=== PATIENT | female | born 1970 | race Caucasian/White ===

== ENCOUNTER 2018-02-15 14:15 | Emergency (ER) | payer OTHER, SELFPAY ==
--- NOTE | 2018-02-15 15:30 | EDPHYS ---
Physician Documentation [facility] Name: Laura Thrasher Age: 47 yrs Sex: Female : 1970 Arrival Date: 02/15/2018 Time: 14:20 Bed 30 Private MD: ED Physician Isacc Ng HPI: 02/15 15:25 This 47 yrs old Female presents to ER via Ambulatory with complaints of cp Itching. 15:25 The patient's rash thought to be caused by an unknown cause. The rash is located on the cp left hand, left arm and right leg. The rash can be described as itching. Onset: The symptoms/episode began/occurred 1.5 week(s) ago. Associated signs and symptoms: Pertinent positives: itching, Pertinent negatives: burning sensation, difficulty breathing, fever, wheezing. Severity of symptoms: in the emergency department the symptoms are unchanged. The patient has been recently seen by a physician: in [place] ED, with similar presenting complaints, prescribed oral steroids and instructed to take OTC Benadryl . 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 - Social history:: Smoking status: Patient uses tobacco products, smokes one-half pack cigarettes per day. - Ebola Screening: : No symptoms or risks identified at this time. ROS: 15:27 Constitutional: Negative for body aches, chills, fever, poor PO intake. cp 15:27 Respiratory: Negative for cough, shortness of breath, wheezing. 15:27 Abdomen/GI: Negative for abdominal pain, nausea, vomiting, and diarrhea. 15:27 Skin: Positive for rash, pruritis, Negative for cellulitis. 15:27 All other systems are negative. Exam: 15:28 Constitutional: The patient appears in no acute distress, alert, awake, non-toxic, well cp developed, well nourished. 15:28 Head/Face: Normocephalic, atraumatic. cp 15:28 Eyes: Periorbital structures: appear normal, Conjunctiva: normal, no exudate, no injection, Sclera: no appreciated abnormality, Lids and lashes: appear normal, bilaterally. 15:28 ENT: External ear(s): are unremarkable, Nose: is normal, Mouth: Lips: moist, Oral mucosa: moist, Posterior pharynx: Airway: no evidence of obstruction, patent. 15:28 Chest/axilla: Inspection: normal. 15:28 Cardiovascular: Rate: normal, Rhythm: regular. 15:28 Respiratory: the patient does not display signs of respiratory distress, Respirations: normal, no use of accessory muscles, no retractions, no splinting, no tachypnea, labored breathing, is not present. 15:28 Abdomen/GI: Exam negative for discomfort, distension, guarding. 15:28 Skin: rash can be described as erythematous, papular, on the left hand, left arm and right leg. Vital Signs: 14:38 BP 156 / 101; Pulse 98; Resp 20; Temp 98; Pulse Ox 99% ; Weight 81.65 kg; Height 5 ft. kr2 7 in. (170.18 cm); Pain 10/10; 15:55 BP 111 / 78; Pulse 94; Resp 16 S; Pulse Ox 97% on R/A; rv 14:38 Body Mass Index 28.19 (81.65 kg, 170.18 cm) kr2 MDM: 15:12 Patient medically screened. cp 15:20 Differential diagnosis: allergic reaction, parasite infection, scabies. cp 15:29 Data reviewed: vital signs, nurses notes, and as a result, I will discharge patient. cp Administered Medications: No medications were administered Disposition: 16:15 Chart complete. cp 18:01 Co-signature as Attending Physician, Isacc Ng MD. rn Disposition: 18 15:29 Discharged to Home. Impression: Scabies. - Condition is Stable. - Discharge Instructions: Scabies, Adult. - Prescriptions for Vistaril 50 mg Oral capsule - take 1 capsule by ORAL route 4 times per day As needed may cause drowsiness, no driving while taking medication; 60 capsule. Elimite 5 % Topical Cream - apply 1 application by TOPICAL route one time Wash after 12 hours. Repeat treatment as directed 1 week later; 120 gram. - Medication Reconciliation Form, Thank You Letter, Antibiotic Education, Prescription Opioid Use form. - Follow up: Gene Caicedo MD; When: 1 week; Reason: symptoms continue. - Problem is an ongoing problem. - Symptoms are unchanged. Signatures: Isacc Ng MD MD rn Alejandro Chowdhury PA PA cp Ingrid Arciniega RN RN kr2 Fox Torres RN RN rv Corrections: (The following items were deleted from the chart) 15:56 15:29 02/15/2018 15:29 Discharged to Home. Impression: Scabies. Condition is Stable. rv Forms are Medication Reconciliation Form, Thank You Letter, Antibiotic Education, Prescription Opioid Use. Follow up: Gene Caicedo; When: 1 week; Reason: symptoms continue. Problem is an ongoing problem. Symptoms are unchanged. cp
--- NOTE | 2018-02-15 15:30 | ER ---
Nurse's Notes [facility] Name: Laura Thrasher Age: 47 yrs Sex: Female : 1970 Arrival Date: 02/15/2018 Time: 14:20 Bed 30 Private MD: Diagnosis: Scabies Presentation: 02/15 14:33 Presenting complaint: Patient states: I was seen a week ago in [facility] for the kr2 same thing. I was given steroids and benadryl but I am still having bad itching. I haven't changed anything I am doing or started any medications. I have scratched sores on myself but I have no rash. Transition of care: patient was not received from another setting of care. Onset: The symptoms/episode began/occurred last week, and became worse today. Anaphylaxis evaluation, no signs or symptoms of anaphylaxis were noted. Onset of symptoms was February 10, 2018. Risk Assessment: Do you want to hurt yourself or someone else? Patient reports no desire to harm self or others. Initial Sepsis Screen: Does the patient meet any 2 criteria? No. Patient's initial sepsis screen is negative. Does the patient have a suspected source of infection? No. Patient's initial sepsis screen is negative. Care prior to arrival: Medication(s) given: Benadryl this morning and prednisone yesterday. 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 - Social history:: Smoking status: Patient uses tobacco products, smokes one-half pack cigarettes per day. - Ebola Screening: : No symptoms or risks identified at this time. Screenin:57 Abuse screen: Denies threats or abuse. Denies injuries from another. Nutritional rv screening: No deficits noted. Tuberculosis screening: No symptoms or risk factors identified. Fall Risk None identified. Assessment: 14:55 General: Appears in no apparent distress. uncomfortable, Behavior is cooperative, rv Reports itching. Pain: Denies pain. Neuro: Level of Consciousness is awake, alert, obeys commands, Oriented to person, place, time, situation. Cardiovascular: Capillary refill < 3 seconds. Respiratory: Airway is patent Respiratory effort is even, Breath sounds are clear bilaterally. GI: No signs and/or symptoms were reported involving the gastrointestinal system. : No signs and/or symptoms were reported regarding the genitourinary system. EENT: No signs and/or symptoms were reported regarding the EENT system. Derm: Skin is intact, Reports itching. Musculoskeletal: No signs and/or symptoms reported regarding the musculoskeletal system. Vital Signs: 14:38 BP 156 / 101; Pulse 98; Resp 20; Temp 98; Pulse Ox 99% ; Weight 81.65 kg; Height 5 ft. kr2 7 in. (170.18 cm); Pain 10/10; 15:55 BP 111 / 78; Pulse 94; Resp 16 S; Pulse Ox 97% on R/A; rv 14:38 Body Mass Index 28.19 (81.65 kg, 170.18 cm) kr2 ED Course: 14:20 Patient arrived in ED. as 14:36 Triage completed. kr2 14:58 Arm band placed on right wrist. rv 14:58 Patient has correct armband on for positive identification. Bed in low position. Call rv light in reach. Side rails up X 1. Pulse ox on. NIBP on. 15:11 Alejandro Chowdhury PA is PHCP. cp 15:11 Isacc Ng MD is Attending Physician. cp 15:29 Gene Caicedo MD is Referral Physician. cp 15:56 No provider procedures requiring assistance completed. Patient did not have IV access rv during this emergency room visit. Administered Medications: No medications were administered Outcome: 15:29 Discharge ordered by . cp 15:56 Discharged to home ambulatory. rv 15:56 Condition: unchanged 15:56 Discharge instructions given to patient, Instructed on discharge instructions, follow up and referral plans. medication usage, Demonstrated understanding of instructions, follow-up care, medications, Prescriptions given X 2. 15:56 Patient left the ED. rv Signatures: Elmira Au Corey, PA PA cp Reaves, Karey, RN RN kr2 Fox Torres RN RN rv Corrections: (The following items were deleted from the chart) 14:39 14:33 Acuity: NELSON 4 kr2 kr2
[2018-02-15 16:18] VITALS: TEMP 98
[2018-02-15 16:20] VITALS: BP 111/78; O2SAT 97
== END 2018-02-15 15:56 | disposition home or self-care (01) ==
LOC: ER 14:15
DX: B86 Scabies (principal); F17.210 Nicotine dependence, cigarettes, uncomplicated; F32.9 Major depressive disorder, single episode, unspecified; F41.9 Anxiety disorder, unspecified
CPT/HCPCS: 99283

== ENCOUNTER 2023-08-26 23:07 | Emergency (ER) | payer OTHER, SELFPAY ==
--- OUTSIDE RECORDS SUMMARY | 2023-08-26 23:11 | XMS REPORT | Continuity of Care Document ---
Author Name Unknown Address [address] [place] [address] [employer] Address [address] [place] [address] [address] [place] [address] Care Team Providers Care Transplant Nurse Practitioner Name Role Phone Smiley Helm Attending Clinician Unavailable CRISTY Attending Clinician Unavailable CRISTY Admitting Clinician Unavailable Encounters Start Date/Time End Date/Time Encounter Type Admission Type Attending Clinicians Care Facility Care Department Encounter ID Source 2021-10-14 13:28:03 Outpatient Smiley Helm [facility] [id number] [facility] 2021-09-23 12:24:00 2021-09-23 12:24:00 Outpatient SHAHANA GIL [facility] [id number] Anabella pierre [facility] [place] [facility]
[2023-08-26] MEDS ORDERED: AZITHROMYCIN 250 MG TAB ONE (23:19)
[2023-08-26] MEDS ORDERED: ONDANSETRON 4 MG/2 ML VIAL ONE (23:30)
[2023-08-26] MEDS ORDERED: MAGNES/ALUMIN/SIMET 30ML UCUP ONE (23:30)
[2023-08-26] MEDS ORDERED: KETOROLAC 30 MG/ML INJ ONE (23:31)
[2023-08-26] MEDS ORDERED: ACETAMINOPHEN 500 MG TAB ONE (23:31)
[2023-08-26] MEDS ORDERED: CEFTRIAXONE 2000 MG/VIAL ONE (23:31)
[2023-08-26] MEDS ORDERED: LIDOCAINE VISCOUS 2% 10ML ORAL SOLN ONE (23:32)
[2023-08-26] MEDS ORDERED: NA CHLORIDE 0.9% 1,000 ML ONE (23:32)
[2023-08-26] MEDS ORDERED: FENTANYL CITR 100 MCG/2 ML ONE (23:32)
[2023-08-26 23:50] LABS: Absolute Basophils 0.1 K/uL (0-0.5); Absolute Lymphocytes (CBC) 1.4 K/uL (0.7-4.9); Absolute Neutrophil 12.5 K/uL (1.8-8.0); Basophils % 0.4 % (0-1.3); Eosinophils % 0.2 % (0-4.4); Hematocrit 37.4 % (36.0-45.0); Hemoglobin 12.6 g/dL (12.0-15.0); Lymphocytes % 9.2 % (15.3-44.8); MCH 29.2 pg (27.0-35.0); MCHC 33.8 g/dL (32.0-36.0); MCV 86.3 fL (80-100); MPV 8.5 fL (7.6-11.3); Monocytes % 6.6 % (3.3-12.3); Neutrophils % 83.6 % (41.7-73.7); Platelets 289 thou/uL (152-406); RBC Red Blood Cell Count 4.33 M/uL (3.86-4.86); Red Cell Distribution Width 13.6 % (12.1-15.2)
[2023-08-27 00:06] LABS: Albumin 3.6 g/dL (3.4-5.0); Albumin/Globulin Ratio 0.9 (1.1-1.8); Anion Gap 10.8 mEq/L (5.0-15.0); Bilirubin Total 0.5 mg/dL (0.2-1.0); Globulin 3.9 g/dL (2.3-3.5); Potassium 3.8 mEq/L (3.5-5.1); Protein, Total 7.5 g/dL (6.4-8.2)
[2023-08-27 00:07] LABS: SARS-CoV-2 Antigen CONTROL BLUE LINE VIS/BG OK; SARS-CoV-2 Antigen Rapid Res Negative (Negative)
--- NOTE | 2023-08-27 00:12 | EDPHYS ---
Physician Documentation [facility] Name: Laura Thrasher Age: 52 yrs Sex: Female : 1970 Arrival Date: 08/26/2023 Time: 23:07 Bed 6 Private MD: DIANE Physician Alejandro De La Torre HPI: 08/25 23:27 This 52 yrs old Female presents to ER via Ambulatory with complaints of rohith Headache, Sore Throat, Fever. 23:27 The patient complains of pain to the top of head, forehead, left frontal area, left rohith side of the back of head, left occipital area, left base of the skull, right frontal area, right side of the back of head, right occipital area and right base of the skull. The patient describes the headache as aching. Historical: - Allergies: 23:27 No Known Allergies; ss - Home Meds: 23:27 None [Active]; ss - PMHx: 23:27 Anxiety; neuropathy; Rheumatoid Arthritis; ss - PSHx: 23:28 Appendectomy; section; bm8 - Immunization history:: Adult Immunizations unknown. - Infectious Disease History:: Denies. - Social history:: Smoking status: unknown. ROS: 23:29 Constitutional: Negative for fever, chills, and weight loss, Eyes: Negative for injury, rohith pain, redness, and discharge, Neck: Negative for injury, pain, and swelling, Cardiovascular: Negative for chest pain, palpitations, and edema, Respiratory: Negative for shortness of breath, cough, wheezing, and pleuritic chest pain, Abdomen/GI: Negative for abdominal pain, nausea, vomiting, diarrhea, and constipation, Back: Negative for injury and pain, : Negative for injury, bleeding, discharge, and swelling, MS/Extremity: Negative for injury and deformity, Skin: Negative for injury, rash, and discoloration, Neuro: Negative for headache, weakness, numbness, tingling, and seizure, Psych: Negative for depression, anxiety, suicide ideation, homicidal ideation, and hallucinations, Allergy/Immunology: Negative for hives, rash, and allergies, Endocrine: Negative for neck swelling, polydipsia, polyuria, polyphagia, and marked weight changes, Hematologic/Lymphatic: Negative for swollen nodes, abnormal bleeding, and unusual bruising, 23:29 Constitutional: Positive for body aches, chills, fatigue, fever, malaise, 23:29 ENT: Positive for rhinorrhea, sore throat, 23:29 Cardiovascular: Positive for palpitations, 23:29 Respiratory: Negative for cough, 23:29 MS/extremity: Negative for acute changes, Exam: 23:30 Head/Face: Normocephalic, atraumatic. Eyes: Pupils equal round and reactive to light, rohith extra-ocular motions intact. Lids and lashes normal. Conjunctiva and sclera are non-icteric and not injected. Cornea within normal limits. Periorbital areas with no swelling, redness, or edema. Neck: Trachea midline, no thyromegaly or masses palpated, and no cervical lymphadenopathy. Supple, full range of motion without nuchal rigidity, or vertebral point tenderness. No Meningismus. Chest/axilla: Normal chest wall appearance and motion. Nontender with no deformity. No lesions are appreciated. Abdomen/GI: Soft, non-tender, with normal bowel sounds. No distension or tympany. No guarding or rebound. No evidence of tenderness throughout. Back: No spinal tenderness. No costovertebral tenderness. Full range of motion. Skin: Warm, dry with normal turgor. Normal color with no rashes, no lesions, and no evidence of cellulitis. MS/ Extremity: Pulses equal, no cyanosis. Neurovascular intact. Full, normal range of motion. Neuro: Awake and alert, GCS 15, oriented to person, place, time, and situation. Cranial nerves II-XII grossly intact. Motor strength 5/5 in all extremities. Sensory grossly intact. Cerebellar exam normal. Normal gait. 23:30 Constitutional: The patient appears febrile, 23:30 ENT: Posterior pharynx: Airway: normal, no evidence of obstruction, Tonsils: are normal in appearance, enlarged on the right, enlarged on the left, bilaterally enlarged, with erythema, Uvula: normal, midline, swelling, is not appreciated, erythema, that is mild, exudate, is not appreciated, 23:30 Cardiovascular: Rate: tachycardic, actual rate is 110 bpm, Rhythm: regular, Pulses: no pulse deficits are appreciated, Heart sounds: normal, Edema: is not appreciated, JVD: is not appreciated, 08/26 00:01 Neck: ROM/movement: is normal, is supple, without pain, no range of motions rohith limitations, no meningismus, no nuchal rigidity, negative Brudzinski's sign, negative Kernig's sign, no acute changes, pain, is not appreciated, limited range of motion, is not appreciated, Meningeal signs: are not present, nuchal rigidity, is not appreciated, Vital Signs: 08/25 23:24 Pulse 110; Resp 19; Temp 100.3; Pulse Ox 98% ; Height 5 ft. 7 in. ; Pain 8/10; ss 23:47 BP 184 / 105; tm6 23:47 Pain 10/10; tm6 08/26 00:28 BP 178 / 112; Pulse 96; Resp 19; Temp 98.5(O); Pulse Ox 97% on R/A; Pain 5/10; tm6 08/25 23:24 Pain Scale: Adult ss 23:47 Pain Scale: Adult tm6 08/26 00:28 Pain Scale: Adult tm6 Radhames Coma Score: 08/25 23:22 Eye Response: spontaneous(4). Motor Response: obeys commands(6). Verbal Response: bm8 oriented(5). Total: 15. 23:32 Eye Response: spontaneous(4). Motor Response: obeys commands(6). Verbal Response: rohith oriented(5). Total: 15. MDM: 23:11 Patient medically screened. rohith 23:32 Differential diagnosis: cluster headache, migraine, vasomotor headache, cocksackie rohith virus, gastroesophageal reflux disease, gingivostomatitis, group A strep tonsillitis, influenza, mononucleosis, peritonsillar abscess neisseria gonorrheoeae pharangitis, Mycoplasma Pharyngitis pharyngitis, retropharyngeal abcess tonsillitis, tracheobronchitis, upper respiratory infection. Data reviewed: vital signs, nurses notes, lab test result(s), radiologic studies, plain films. Consideration of Admission/Observation Escalation of care including admission/observation considered. I considered the following discharge prescriptions or medication management in the emergency department Medications were administered in the Emergency Department. See MAR. Test considered but Not performed: CT: no ct neck. Care significantly affected by the following chronic conditions: RA, NEUROPATHY,ANXIETY. Counseling: I had a detailed discussion with the patient and/or guardian regarding the historical points, exam findings, and any diagnostic results supporting the discharge/admit diagnosis, lab results, radiology results, the need for outpatient follow up, for definitive care, an ENT specialist, a family practitioner. 08/25 23:12 Order name: Strep; Complete Time: 00:10 [facility] 08/25 23:12 Order name: Flu; Complete Time: 00:10 [facility] 08/25 23:12 Order name: SARS RAPID; Complete Time: 00:10 [facility] 08/25 23:27 Order name: CBC with Diff; Complete Time: 00:00 [facility] 08/25 23:27 Order name: Comprehensive Metabolic Panel; Complete Time: 00:10 [facility] 08/26 00:10 Order name: Throat Culture [facility] 08/25 23:30 Order name: Chest Pa And Lat (2 Views) XRAY rohith Administered Medications: 23:45 Drug: NS 0.9% IV 1000 ml IV at 1 bolus Per protocol; 1000 mL bolus Route: IV; Rate: 1 tm6 bolus; Site: right forearm; 08/26 00:27 Follow up: IV Status: Completed infusion; IV Intake: 1000ml tm6 08/25 23:45 Drug: Ketorolac IVP 15 mg IVP once Route: IVP; Site: right forearm; tm6 23:45 Drug: Acetaminophen PO 1000 mg PO once Route: PO; tm6 23:46 Drug: Rocephin IV 2 grams IV at per protocol once; Given slow IV push per tado tm6 instructions Route: IV; Rate: per protocol; Site: right forearm; 23:46 Drug: fentaNYL (PF) IVP 50 mcg IVP once Route: IVP; Site: right forearm; tm6 23:46 Drug: Ondansetron IVP 4 mg IVP once; over 2 minutes Route: IVP; Site: right forearm; tm6 23:47 Drug: AZITHromycin PO 500 mg PO once Route: PO; tm6 23:47 Drug: GI Cocktail without - (Maalox PO 30 ml, Lidocaine Mucous Membrane 2 % 15 tm6 ml) PO once Route: PO; 08/26 00:27 Drug: Decadron - Dexamethasone IVP 10 mg IVP once Route: IVP; Site: right forearm; tm6 Disposition Summary: 08/27/23 00:11 Discharge Ordered Notes: Location: Home rohith Problem: new rohith Symptoms: have improved rohith Condition: Stable rohith Diagnosis - Fever, unspecified rohith - Headache rohith - Acute recurrent tonsillitis, unspecified rohith - Elevated white blood cell count rohith Followup: rohith - With: Private Physician - When: 2 - 3 days - Reason: Recheck today's complaints, Continuance of care, Re-evaluation by your physician Followup: rohith - With: Inna Barrera MD - When: 2 - 3 days - Reason: Recheck today's complaints, Re-evaluation by your physician Discharge Instructions: - Discharge Summary Sheet rohith - Fever, Adult rohith - Tonsillitis rohith - Tonsillitis, [id number] rohith - Tonsillectomy, Adult, Care After, [id number] rohith - Fever, Adult, [id number] [facility] Forms: - Medication Reconciliation Form rohith - Antibiotic Education rohith - Prescription Opioid Use rohith - Patient Portal Instructions [facility] - Leadership Thank You Letter [facility] Prescriptions: - dexamethasone 4 mg Oral tablet - take 1 tablet ORAL route daily; 5 tablet; Refills: 0, Product Selection [facility] Permitted - Ibuprofen 600 mg Oral Tablet - take 1 tablet ORAL route every 6 hours As needed take with food; 30 tablet; [facility] Refills: 0, Product Selection Permitted - Zithromax 500 mg Oral Tablet - take 1 tablet ORAL route once daily for 5 days; 5 tablet; Refills: 0, Product [facility] Selection Permitted Signatures: Dispatcher [employer] EDMS Alejandro De La Torre MD MD cha Blanchard, Shelby, RN RN Severino Rinaldi, WILBERT RN tm6 Luis Draper RN RN bm8 Corrections: (The following items were deleted from the chart) 08/25 23:13 23:13 Group A Streptococcus Rapid Sc+BA.LAB.BRZ ordered. EDMS EDMS 23:13 23:13 Influenza Screen (A \T\ B)+BA.LAB.BRZ ordered. EDMS EDMS 23:13 23:13 SARS-COV-2 Antigen Rapid+I.LAB.BRZ ordered. EDMS EDMS 23:27 23:27 CBC+H.LAB.BRZ ordered. EDMS EDMS 23: 23:27 COMPREHENSIVE METABOLIC PANEL+C.LAB.BRZ ordered. EDMS EDMS 23:31 23:31 Chest Pa And Lat (2 Views)+RAD.RAD.BRZ ordered. EDMS EDMS
--- NOTE | 2023-08-27 00:12 | ER ---
Nurse's Notes [facility] Name: Laura Thrasher Age: 52 yrs Sex: Female : 1970 Arrival Date: 08/26/2023 Time: 23:07 Bed 6 Private MD: Diagnosis: Fever, unspecified;Headache;Acute recurrent tonsillitis, unspecified;Elevated white blood cell count Presentation: 08/25 23:24 Chief complaint: Patient states: fever, chills, sore throat and chills that began ss yesterday. Coronavirus screen: Client denies travel out of the [place] in the last 14 days. Ebola Screen: Patient denies exposure to infectious person. Patient denies travel to an Ebola-affected area in the 21 days before illness onset. Initial Sepsis Screen: Does the patient meet any 2 criteria? No. Patient's initial sepsis screen is negative. Does the patient have a suspected source of infection? No. Patient's initial sepsis screen is negative. Risk Assessment: Do you want to hurt yourself or someone else? Patient reports no desire to harm self or others. Onset of symptoms was August 25, 2023. 23:24 Acuity: NELSON 3 ss 23:24 Method Of Arrival: Ambulatory ss Triage Assessment: 08/26 00:29 Headache History: Denies prior headaches. General: Appears distressed. General: tm6 Behavior is calm, cooperative. Pain: Pain began gradually, Also complains of no other associated symptoms. Historical: - Allergies: 08/25 23:27 No Known Allergies; ss - Home Meds: 23:27 None [Active]; ss - PMHx: 23:27 Anxiety; neuropathy; Rheumatoid Arthritis; ss - PSHx: 23:28 Appendectomy; section; bm8 - Immunization history:: Adult Immunizations unknown. - Infectious Disease History:: Denies. - Social history:: Smoking status: unknown. Screenin:22 [facility] ED Fall Risk Assessment (Adult) History of falling in the last 3 months, bm8 including since admission No falls in past 3 months (0 pts) Confusion or Disorientation No (0 pts) Intoxicated or Sedated No (0 pts) Impaired Gait No (0 pts) Mobility Assist Device Used No (0 pt) Altered Elimination No (0 pt) Score/Fall Risk Level 0 - 2 = Low Risk Oriented to surroundings, Maintained a safe environment, Educated pt \T\ family on fall prevention, incl call for assistance when getting out of bed. Abuse screen: Denies threats or abuse. Nutritional screening: No deficits noted. Tuberculosis screening: No symptoms or risk factors identified. Assessment: 23:22 General: Appears in no apparent distress. uncomfortable, Behavior is calm, cooperative, bm8 appropriate for age. Pain: Complains of pain in throat, generalized body aches, with headache Pain does not radiate. Pain currently is 7 out of 10 on a pain scale. Neuro: No deficits noted. Level of Consciousness is awake, alert, obeys commands, Oriented to person, place, time, situation. Cardiovascular: Denies chest pain, lightheadedness, shortness of breath, Capillary refill < 3 seconds Patient's skin is warm and dry. Respiratory: No deficits noted. Airway is patent is compromised Trachea midline Respiratory effort is even, unlabored, Respiratory pattern is regular, symmetrical, Breath sounds are clear bilaterally. GI: No deficits noted. No signs and/or symptoms were reported involving the gastrointestinal system. : No deficits noted. No signs and/or symptoms were reported regarding the genitourinary system. EENT: Throat is reddened has patchy exudate has enlarged tonsils bilaterally with gag reflex present, Reports nasal congestion pain when swallowing. Derm: No deficits noted. No signs and/or symptoms reported regarding the dermatologic system. Musculoskeletal: No deficits noted. No signs and/or symptoms reported regarding the musculoskeletal system. 08/26 00:28 Reassessment: Patient appears in no apparent distress at this time. Patient and/or tm6 family updated on plan of care and expected duration. Pain level reassessed. Patient is alert, oriented x 3, equal unlabored respirations, skin warm/dry/pink. Vital Signs: 08/25 23:24 Pulse 110; Resp 19; Temp 100.3; Pulse Ox 98% ; Height 5 ft. 7 in. ; Pain 8/10; ss 23:47 BP 184 / 105; tm6 23:47 Pain 10/10; tm6 08/26 00:28 BP 178 / 112; Pulse 96; Resp 19; Temp 98.5(O); Pulse Ox 97% on R/A; Pain 5/10; tm6 08/25 23:24 Pain Scale: Adult ss 23:47 Pain Scale: Adult tm6 08/26 00:28 Pain Scale: Adult tm6 Radhames Coma Score: 08/25 23:22 Eye Response: spontaneous(4). Motor Response: obeys commands(6). Verbal Response: bm8 oriented(5). Total: 15. 23:32 Eye Response: spontaneous(4). Motor Response: obeys commands(6). Verbal Response: rohith oriented(5). Total: 15. ED Course: 23:09 Patient arrived in ED. jj6 23:11 Alejandro De La Torre MD is Attending Physician. rohith 23:22 Luis Draper, RN is Primary Nurse. bm8 23:22 Patient has correct armband on for positive identification. Bed in low position. Call bm8 light in reach. Client placed on continuous cardiac and pulse oximetry monitoring. NIBP monitoring applied. Pulse ox on. NIBP on. Door closed. Noise minimized. Verbal reassurance given. 23:22 No provider procedures requiring assistance completed. bm8 23:26 SARS RAPID Sent. tm6 23:26 Flu Sent. tm6 23:26 Strep Sent. tm6 23:27 Triage completed. ss 23:27 Arm band placed on right wrist. ss 23:42 Initial lab(s) drawn, by id, sent to lab. COVID swab sent to lab. Flu and/or RSV swab bm8 sent to lab. Strep swab sent to lab. Inserted saline lock: 20 gauge in right forearm, using aseptic technique. Blood collected. 08/26 00:11 Inna Barrera MD is Referral Physician. rohith 00:21 Chest Pa And Lat (2 Views) XRAY In Process Unspecified. EDMS 00:29 Provided Education on: prescription medications. tm6 00:29 IV discontinued, intact, bleeding controlled, No redness/swelling at site. Pressure tm6 dressing applied. Administered Medications: 08/25 23:45 Drug: NS 0.9% IV 1000 ml IV at 1 bolus Per protocol; 1000 mL bolus Route: IV; Rate: 1 tm6 bolus; Site: right forearm; 08/26 00:27 Follow up: IV Status: Completed infusion; IV Intake: 1000ml tm6 08/25 23:45 Drug: Ketorolac IVP 15 mg IVP once Route: IVP; Site: right forearm; tm6 23:45 Drug: Acetaminophen PO 1000 mg PO once Route: PO; tm6 23:46 Drug: Rocephin IV 2 grams IV at per protocol once; Given slow IV push per pharmarcy tm6 instructions Route: IV; Rate: per protocol; Site: right forearm; 23:46 Drug: fentaNYL (PF) IVP 50 mcg IVP once Route: IVP; Site: right forearm; tm6 23:46 Drug: Ondansetron IVP 4 mg IVP once; over 2 minutes Route: IVP; Site: right forearm; tm6 23:47 Drug: AZITHromycin PO 500 mg PO once Route: PO; tm6 23:47 Drug: GI Cocktail without - (Maalox PO 30 ml, Lidocaine Mucous Membrane 2 % 15 tm6 ml) PO once Route: PO; 08/26 00:27 Drug: Decadron - Dexamethasone IVP 10 mg IVP once Route: IVP; Site: right forearm; tm6 Medication: 08/25 23:22 VIS not applicable for this client. bm8 Intake: 08/26 00:27 IV: 1000ml; Total: 1000ml. tm6 Outcome: 00:11 Discharge ordered by MD. newberry 00:29 Discharged to home ambulatory, with family, tm6 00:29 Condition: stable 00:29 Discharge instructions given to patient, family, Instructed on discharge instructions, follow up and referral plans. medication usage, Demonstrated understanding of instructions, follow-up care, medications, Prescriptions given X 3, 00:30 Patient left the ED. tm6 Signatures: Dispatcher [employer] EDNH Alejandro De La Torre MD MD cha Blanchard, Shelby, WILBERT ATKINS Noelle Avelar6 Severino Rinaldi RN RN tm6 Luis Draper RN RN bm8
[2023-08-27] MEDS ORDERED: dexAMETHasone 10 MG/ML VIAL ONE (00:17)
[2023-08-27 01:09] VITALS: BP 178/112; TEMP 98.5; O2SAT 97
--- NOTE | 2023-08-27 17:56 | RAD REPORT ---
EXAM DESCRIPTION: Chest Pa And Lat (2 Views) CLINICAL HISTORY: COUGH COMPARISON: None. FINDINGS: Frontal and lateral radiographic views of the chest. Cardiomediastinal silhouette: Normal size and contour. Lungs: No consolidation, pneumothorax, or pleural effusion. Bones: No acute osseous abnormality. Mild endplate spondylosis. Upper abdomen: No abnormality identified. IMPRESSION: 1. No acute pulmonary process identified. Electronically signed by: Kike Burrell DO 08/27/2023 12:31 AM CDT 4ZDM Due to temporary technical issues with the PACS/Fluency reporting system, reports are being signed by the in house radiologists without review as a courtesy to insure prompt reporting. The interpreting radiologist is fully responsible for the content of the report.
== END 2023-08-27 00:30 | disposition home or self-care (01) ==
LOC: ER 23:07
DX: J03.91 Acute recurrent tonsillitis, unspecified (principal); R51.9 Headache, unspecified; D72.829 Elevated white blood cell count, unspecified
CPT/HCPCS: 36415; 71046; 80053; 85025; 87070; 87081; 87804; 87811; 96361; 96374; 96375; 99284; J0696; J1100; J2405; J3010; J7030

== ENCOUNTER 2024-03-26 19:36 | Emergency (ER) | payer OTHER, SELFPAY ==
--- OUTSIDE RECORDS SUMMARY | 2024-03-26 19:40 | XMS REPORT | Continuity of Care Document ---
Author Name Unknown Address [address] [place] [address] Ray. [address] [facility]. [address] [place] [address] Care Team Providers Care Assayer Helper Name Role Phone Smiley Helm Attending Clinician Unavailable CRISTY Attending Clinician Unavailable CRISTY Admitting Clinician Unavailable Encounters Start Date/Time End Date/Time Encounter Type Admission Type Attending Clinicians Care Facility Care Department Encounter ID Source 2021-10-14 13:28:03 Outpatient Smiley Helm [facility] [id number] [facility] 2021-09-23 12:24:00 2021-09-23 12:24:00 Outpatient SHAHANA GIL [facility] [id number] Anabella pierre [facility] Program
[2024-03-26] MEDS ORDERED: KETOROLAC 30 MG/ML INJ ONE (20:38)
[2024-03-26] MEDS ORDERED: DIPHENHYDRAMINE 50 MG/ML VIAL ONE (20:38)
[2024-03-26] MEDS ORDERED: GUAIFENESIN/DM 5 ML UCUP ONE (20:39)
[2024-03-26] MEDS ORDERED: METOCLOPRAMIDE 10 MG/2mL INJ ONE (20:39)
[2024-03-26] MEDS ORDERED: NA CHLORIDE 0.9% 1,000 ML ONE (20:39)
[2024-03-26] MEDS ORDERED: CODEINE 30MG/APAP 300MG TAB ONE (20:39)
[2024-03-26 21:17] LABS: Absolute Monocytes 0.5 K/uL (0.1-1.3); Basophils % 0.5 % (0-1.3); Hemoglobin 13.6 g/dL (12.0-15.0); Nucleated Red Blood Cells % 0.1 % (0-0); RBC Red Blood Cell Count 4.74 M/uL (3.86-4.86)
--- NOTE | 2024-03-26 21:34 | RAD REPORT ---
Procedure: Chest Single View HISTORY: Chest pain COMPARISON: August 2023 FINDINGS: The lungs appear clear of acute infiltrate. Calcified granuloma left lung No significant pleural effusion noted. The heart is borderline enlarged.. IMPRESSION: No acute abnormality is displayed.
[2024-03-26 21:36] LABS: Absolute Eosinophils 0.1 K/uL (0-0.5); Absolute Lymphocytes (CBC) 1.8 K/uL (0.7-4.9); Absolute Neutrophil 4.2 K/uL (1.8-8.0); Eosinophils % 0.9 % (0-4.4); Hematocrit 40.1 % (36.0-45.0); Lymphocytes % 27.9 % (15.3-44.8); MCH 28.6 pg (27.0-35.0); MCHC 33.9 g/dL (32.0-36.0); MCV 84.6 fL (80-100); MPV 10.5 fL (7.6-11.3); Monocytes % 6.9 % (3.3-12.3); Neutrophils % 63.8 % (41.7-73.7); Platelets 202 thou/uL (152-406)
[2024-03-26 21:53] LABS: Anion Gap 9.7 mEq/L (5.0-15.0)
[2024-03-26 21:55] LABS: Potassium 3.7 mEq/L (3.5-5.1)
--- NOTE | 2024-03-26 22:48 | EDPHYS ---
Physician Documentation [facility] Name: Laura Thrasher Age: 53 yrs Sex: Female : 1970 Arrival Date: 03/26/2024 Time: 19:36 Bed 6 Private MD: ED Physician Wilmar Sweet HPI: 03/26 20:06 This 53 yrs old Female presents to ER via Unassigned with complaints of Flu sp4 Symptoms. 20:26 53-year-old female who is basically healthy presents with 4 days of fever with Tmax at sp4 103 dry cough nausea and moderate to severe headache also with associated body aches. She reports close contact with case of influenza.. Historical: - Allergies: 20:26 No Known Allergies; cm10 - PMHx: 20:26 Anxiety; neuropathy; Rheumatoid Arthritis; "Recovering from narcotic addiction"; cm10 - PSHx: 20:26 Appendectomy; section; cm10 - Immunization history:: Adult Immunizations up to date. - Infectious Disease History:: Denies. - Social history:: Smoking status: Patient reports the use of cigarette tobacco products, smokes one pack cigarettes per day. - Family history:: not pertinent. ROS: 20:26 Constitutional: Positive fever, positive cough, positive nausea, positive headache, sp4 positive body aches, positive chills 20:26 All other systems are negative, Exam: 20:26 Constitutional: This is a well developed, well nourished patient who is awake, alert, sp4 and in no acute distress. Head/Face: Normocephalic, atraumatic. Eyes: Pupils equal round and reactive to light, extra-ocular motions intact. Lids and lashes normal. Conjunctiva and sclera are not injected. Cornea within normal limits. Periorbital areas with no swelling, redness, or edema. ENT: Nares patent. No nasal discharge, no septal abnormalities noted. Tympanic membranes are normal and external auditory canals are clear. Oropharynx with no redness, swelling, or masses, exudates, or evidence of obstruction, uvula midline. Mucous membranes moist. Neck: Trachea midline, no thyromegaly or masses palpated, and no cervical lymphadenopathy. Supple, full range of motion without nuchal rigidity, or vertebral point tenderness. Chest/axilla: Normal chest wall appearance and motion. Nontender with no deformity. No lesions are appreciated. Cardiovascular: Regular rate and rhythm with a normal S1 and S2. No gallops, murmurs, or rubs. Normal PMI, no JVD. No pulse deficits. Respiratory: Lungs have equal breath sounds bilaterally, clear to auscultation and percussion. No rales, rhonchi or wheezes noted. No increased work of breathing, no retractions or nasal flaring. Abdomen/GI: Soft, with normal bowel sounds. No distension or tympany. No guarding or rebound. No evidence of tenderness throughout. Back: No spinal tenderness. No costovertebral tenderness. Skin: Warm, dry with normal turgor. Normal color with no rashes, no lesions, and no evidence of cellulitis. MS/ Extremity: Pulses equal, no cyanosis. Neurovascular intact. Full, normal range of motion. Neuro: Awake and alert, GCS 15, oriented to person, place, time, and situation. Cranial nerves II-XII grossly intact. Motor strength 5/5 in all extremities. Sensory grossly intact. Psych: Awake, alert, with orientation to person, place and time. Behavior, mood, and affect are within normal limits Vital Signs: 20:25 BP 176 / 101; Pulse 96; Resp 18; Temp 98.7(O); Pulse Ox 96% on R/A; Weight 74.84 kg; cm10 Height 5 ft. 7 in. ; Pain 8/10; 21:53 BP 143 / 88; Pulse 81; Resp 16; Pulse Ox 96% on R/A; jb4 23:00 BP 113 / 70; Pulse 78; Resp 20; Pulse Ox 94% on R/A; ay 20:25 Body Mass Index 25.84 (74.84 kg, 170.18 cm) cm10 20:25 Pain Scale: Adult cm10 Radhames Coma Score: 20:26 Eye Response: spontaneous(4). Motor Response: obeys commands(6). Verbal Response: sp4 oriented(5). Total: 15. MDM: 20:06 Medical Screening Exam initiated sp4 20:26 Differential Diagnosis altered mental status, sepsis, flu. Data reviewed: vital signs, sp4 nurses notes, lab test result(s), radiologic studies, plain films. 03/26 20:06 Order name: Influenza Screen (a \\T\\ B); Complete Time: 21:55 sp4 03/26 20:25 Order name: Basic Metabolic Panel; Complete Time: 22:39 sp4 03/26 20:25 Order name: CBC with Diff; Complete Time: 23:01 sp4 03/26 21:47 Order name: CBC Smear Scan; Complete Time: 23:01 EDMS 03/26 20:25 Order name: XRAY Chest (1 view); Complete Time: 21:55 sp4 03/26 20:25 Order name: IV Saline Lock; Complete Time: 20:44 sp4 03/26 20:25 Order name: Labs collected and sent; Complete Time: 20:44 sp4 Administered Medications: 20:51 Drug: Acetaminophen-Codeine PO (300 mg-30 mg) 2 tabs PO once; RASS on ADMIN: Combtv4, jb4 Very Agttd3, Agttd2, Rstlss1, AlertClm0, Drwsy-1, Lt Sdtn-2, Mod Sdtn-3, Dp Sdtn-4, UnArsble-5 Route: PO; 23:20 Follow up: Response: No adverse reaction ay 20:51 Drug: Dextromethorphan-Guaifenesin PO Liquid 10 mg-100 mg/5 mL 10 ml PO once Route: PO; jb4 23:20 Follow up: Response: No adverse reaction ay 20:54 Drug: NS 0.9% IV 1000 ml IV at 1 bolus Per protocol; to be given as a bolus over 60 jb4 minutes Route: IV; Rate: 1 bolus; Site: right antecubital; 23:21 Follow up: Response: No adverse reaction; IV Status: Completed infusion; IV Intake: ay 1000ml 20:54 Drug: metoCLOPramide IVP 10 mg IVP once; over 1 to 2 minutes Route: IVP; Site: right jb4 antecubital; 23:21 Follow up: Response: No adverse reaction ay 20:54 Drug: Ketorolac IVP 30 mg IVP once Route: IVP; Site: right antecubital; jb4 23:21 Follow up: Response: No adverse reaction ay 20:54 Drug: diphenhydrAMINE IVP 25 mg IVP once Route: IVP; Site: right antecubital; jb4 23:20 Follow up: Response: No adverse reaction ay Disposition Summary: 03/26/24 22:48 Discharge Ordered Notes: Location: Home sp4 Problem: new sp4 Symptoms: have improved sp4 Condition: Stable sp4 Diagnosis - Viral infection, unspecified sp4 - Influenza A sp4 Followup: sp4 - With: Private Physician - When: 7 - 10 days - Reason: Recheck today's complaints Discharge Instructions: - Discharge Summary Sheet sp4 - Influenza, Adult, [id number]-[id number] sp4 Forms: - Patient Portal Instructions sp4 Prescriptions: - dextromethorphan-guaifenesin 20-400 mg Oral tablet - take 1 tablet ORAL route every 6 hours PRN coughj; 40 tablet; Refills: 0, sp4 Product Selection Permitted - Ibuprofen 800 mg Oral Tablet - take 1 tablet ORAL route every 8 hours As needed take with food; 30 tablet; sp4 Refills: 0, Product Selection Permitted - ondansetron 8 mg Oral Tablet,disintegrating - take 1 tablet ORAL route every 8 hours PRN nausea; 30 tablet; Refills: 0, sp4 Product Selection Permitted Signatures: Dispatcher [employer] EDFidel Goodman, RN RN jb4 Wilmar Sweet MD MD sp4 Fiona Au RN RN cm10 Cayetano Pineda RN ay Corrections: (The following items were deleted from the chart) 20:25 20:25 BASIC METABOLIC PANEL+C.LAB.BRZ ordered. EDMS EDMS 20:25 20:25 CBC+H.LAB.BRZ ordered. EDMS EDMS
--- NOTE | 2024-03-26 22:48 | ER ---
Nurse's Notes [facility] Name: Laura Thrasher Age: 53 yrs Sex: Female : 1970 Arrival Date: 03/26/2024 Time: 19:36 Bed 6 Private MD: Diagnosis: Viral infection, unspecified;Influenza A Presentation: 03/26 20:25 Chief complaint: Patient states: fever (TMAX 103), cough, sore throat and headache cm10 onset 4 days ago. Pt's significant other recently diagnosed with the Flu. Coronavirus screen: Client denies travel out of the [place] in the last 14 days. Ebola Screen: Patient denies travel to an Ebola-affected area in the 21 days before illness onset. Initial Sepsis Screen: Does the patient meet any 2 criteria? HR > 90 bpm. Does the patient have a suspected source of infection? No. Patient's initial sepsis screen is negative. Risk Assessment: Do you want to hurt yourself or someone else? Patient reports no desire to harm self or others. Onset of symptoms was March 22, 2024. 20:25 Method Of Arrival: Ambulatory cm10 20:25 Acuity: NELSON 4 cm10 Triage Assessment: 20:27 General: Appears in no apparent distress. uncomfortable, Behavior is calm, cooperative. cm10 Neuro: No deficits noted. Level of Consciousness is awake, alert, obeys commands, Oriented to person, place, time, situation, Appropriate for age. Respiratory: No deficits noted. Airway is patent Respiratory effort is even, unlabored, Respiratory pattern is regular, symmetrical. Historical: - Allergies: 20:26 No Known Allergies; cm10 - PMHx: 20:26 Anxiety; neuropathy; Rheumatoid Arthritis; "Recovering from narcotic addiction"; cm10 - PSHx: 20:26 Appendectomy; section; cm10 - Immunization history:: Adult Immunizations up to date. - Infectious Disease History:: Denies. - Social history:: Smoking status: Patient reports the use of cigarette tobacco products, smokes one pack cigarettes per day. - Family history:: not pertinent. Screenin:21 [facility] ED Fall Risk Assessment (Adult) History of falling in the last 3 months, ay including since admission No falls in past 3 months (0 pts) Confusion or Disorientation No (0 pts) Intoxicated or Sedated No (0 pts) Impaired Gait No (0 pts) Mobility Assist Device Used No (0 pt) Altered Elimination No (0 pt) Score/Fall Risk Level 0 - 2 = Low Risk Oriented to surroundings, Maintained a safe environment, Educated pt \\T\\ family on fall prevention, incl call for assistance when getting out of bed. Abuse screen: Denies threats or abuse. Nutritional screening: No deficits noted. Tuberculosis screening: No symptoms or risk factors identified. Assessment: 20:45 General: Appears in no apparent distress. uncomfortable, Behavior is calm, cooperative, jb4 appropriate for age. Pain: Complains of pain in headache. Pain does not radiate. Pain currently is 8 out of 10 on a pain scale. Neuro: Level of Consciousness is awake, alert, obeys commands, Oriented to person, place, time, situation. Cardiovascular: Patient's skin is warm and dry. Respiratory: Airway is patent Respiratory effort is even, unlabored, Respiratory pattern is regular, symmetrical. Derm: Skin is intact, Skin is pink, warm \\T\\ dry. Musculoskeletal: Circulation, motion, and sensation intact. Range of motion: intact in all extremities. 21:53 Reassessment: Patient appears in no apparent distress at this time. Patient and/or jb4 family updated on plan of care and expected duration. Pain level reassessed. Patient is alert, oriented x 3, equal unlabored respirations, skin warm/dry/pink. Patient states feeling better. Vital Signs: 20:25 BP 176 / 101; Pulse 96; Resp 18; Temp 98.7(O); Pulse Ox 96% on R/A; Weight 74.84 kg; cm10 Height 5 ft. 7 in. ; Pain 8/10; 21:53 BP 143 / 88; Pulse 81; Resp 16; Pulse Ox 96% on R/A; jb4 23:00 BP 113 / 70; Pulse 78; Resp 20; Pulse Ox 94% on R/A; ay 20:25 Body Mass Index 25.84 (74.84 kg, 170.18 cm) cm10 20:25 Pain Scale: Adult cm10 Radhames Coma Score: 20:26 Eye Response: spontaneous(4). Motor Response: obeys commands(6). Verbal Response: sp4 oriented(5). Total: 15. ED Course: 19:41 Patient arrived in ED. im 20:06 Wilmar Sweet MD is Attending Physician. sp4 20:26 Triage completed. cm10 20:27 Arm band placed on right wrist. Patient placed in waiting room. cm10 20:43 Initial lab(s) drawn, by me, sent to lab. Inserted saline lock: 20 gauge in right vk antecubital area, using aseptic technique. Blood collected. Flushed with 10 mL NS. 20:44 Basic Metabolic Panel Sent. vk 20:44 CBC with Diff Sent. vk 20:45 Influenza Screen (a \\T\\ B) Sent. vk 20:45 Flu and/or RSV swab sent to lab. vk 21:10 XRAY Chest (1 view) In Process Unspecified. EDMS 22:00 Fidel Bernal, WILBERT is Primary Nurse. jb4 23:21 Patient has correct armband on for positive identification. Bed in low position. Call ay light in reach. Side rails up X2. Provided Education on: D/C instructions. 23:21 IV discontinued, intact, bleeding controlled, No redness/swelling at site. Pressure ay dressing applied. 23:24 No provider procedures requiring assistance completed. ay Administered Medications: 20:51 Drug: Acetaminophen-Codeine PO (300 mg-30 mg) 2 tabs PO once; RASS on ADMIN: Combtv4, jb4 Very Agttd3, Agttd2, Rstlss1, AlertClm0, Drwsy-1, Lt Sdtn-2, Mod Sdtn-3, Dp Sdtn-4, UnArsble-5 Route: PO; 23:20 Follow up: Response: No adverse reaction ay 20:51 Drug: Dextromethorphan-Guaifenesin PO Liquid 10 mg-100 mg/5 mL 10 ml PO once Route: PO; jb4 23:20 Follow up: Response: No adverse reaction ay 20:54 Drug: NS 0.9% IV 1000 ml IV at 1 bolus Per protocol; to be given as a bolus over 60 jb4 minutes Route: IV; Rate: 1 bolus; Site: right antecubital; 23:21 Follow up: Response: No adverse reaction; IV Status: Completed infusion; IV Intake: ay 1000ml 20:54 Drug: metoCLOPramide IVP 10 mg IVP once; over 1 to 2 minutes Route: IVP; Site: right jb4 antecubital; 23:21 Follow up: Response: No adverse reaction ay 20:54 Drug: Ketorolac IVP 30 mg IVP once Route: IVP; Site: right antecubital; jb4 23:21 Follow up: Response: No adverse reaction ay 20:54 Drug: diphenhydrAMINE IVP 25 mg IVP once Route: IVP; Site: right antecubital; jb4 23:20 Follow up: Response: No adverse reaction ay Medication: 23:21 VIS not applicable for this client. ay Intake: 23:21 IV: 1000ml; Total: 1000ml. ay Outcome: 22:48 Discharge ordered by MD. vincent 23:21 Discharged to home ambulatory, ay 23:21 Condition: stable 23:21 Discharge instructions given to patient, Instructed on discharge instructions, follow up and referral plans. medication usage, Demonstrated understanding of instructions, follow-up care, medications, Prescriptions given X 3, 23:24 Patient left the ED. ay Signatures: Dispatcher [employer] EDMS Fidel Bernal RN RN jb4 Wilmar Sweet MD MD sp4 Maureen Shah Clarissa, RN RN cm10 Pao Diaz Awudu RN RN ay
[2024-03-26 23:00] LABS: Blood Morphology Comment NOT SEEN (NOT SEEN); Platelet Estimate ADEQ; White Blood Cell Scan OK (OK)
[2024-03-29 01:48] VITALS: BP 143/88; TEMP 98.7; O2SAT 96
== END 2024-03-26 23:24 | disposition home or self-care (01) ==
LOC: ER 19:36
DX: J10.1 Influenza due to other identified influenza virus with other respiratory manifestations (principal); F17.210 Nicotine dependence, cigarettes, uncomplicated
CPT/HCPCS: 96361; 85025; 80048; 36415; 87804 ×2; 71045; 96375; 96374; 99284; J2765; J1200; J7030